=== PATIENT | female | born 1985 | race Caucasian/White ===

== ENCOUNTER 2016-10-05 16:50 | Emergency (ER) | payer OTHER | END 2016-10-05 17:59 | disposition home or self-care (01) | LOC: ER1 16:50 | DX: S83.421A Sprain of lateral collateral ligament of right knee, initial encounter (principal); F17.210 Nicotine dependence, cigarettes, uncomplicated; X58.XXXA Exposure to other specified factors, initial encounter; Y92.830 Public park as the place of occurrence of the external cause | CPT/HCPCS: 73564; 99283 ==

== ENCOUNTER 2016-10-20 13:55 | Emergency (ER) | payer OTHER ==
[2016-10-20 15:36] LABS: HEMOGLOBIN 11.9 gm/dl (12.3-15.3); RED BLOOD COUNT 4.27 M/UL (4.00-5.10); WHITE BLOOD COUNT 7.6 K/UL (4.5-11.0)
[2016-10-20 15:52] LABS: BUN/CREATININE RATIO 18 (0-10)
== END 2016-10-20 17:10 | disposition home or self-care (01) ==
LOC: ER1 13:55
PROVIDERS: Physician Assistant Medical
DX: S83.91XA Sprain of unspecified site of right knee, initial encounter (principal); G89.29 Other chronic pain; M54.5 Low back pain; F17.210 Nicotine dependence, cigarettes, uncomplicated; X58.XXXA Exposure to other specified factors, initial encounter
CPT/HCPCS: 36415; 72100; 80048; 81001; 84703; 85025; 85379; 99283

== ENCOUNTER → 2016-11-15 | Outpatient (CLI) | payer OTHER | LOC: KOH-I 11-02 13:45 | DX: M54.16 Radiculopathy, lumbar region (principal); R20.9 Unspecified disturbances of skin sensation; M51.17 Intervertebral disc disorders with radiculopathy, lumbosacral region | CPT/HCPCS: 72148 ==